=== PATIENT | male | born 1955 | race Two or more races ===

== ENCOUNTER 2023-01-13 09:45 | Inpatient (IN) | payer OTHER ==
[~2023-01-13] VITALS: Ht 165.1 cm; Wt 77.1 kg
[2023-01-13] MEDS ORDERED: CREST PO (12:22)
[2023-01-13] MEDS ORDERED: OMEGA3 PO (12:23)
[2023-01-13] MEDS ORDERED: [UNRECOGNIZED DRUG - CODE] PO (12:23)
[2023-01-13] MEDS ORDERED: UROXATRAL10 MG PO (12:24)
[2023-01-13] MEDS ORDERED: VITAMIN D3 PO (12:24)
[2023-01-13] MEDS ORDERED: CENTRUM (12:24)
[2023-01-18] MEDS ORDERED: ZOFRAN8 MG PO (07:21)
[2023-01-18] MEDS ORDERED: AMOX-CLAV 875-1 EACH PO (07:21)
[2023-01-18] MEDS ORDERED: MEDROLPACK PO (07:21)
[2023-01-18] MEDS ORDERED: PERCOCET 5-3251 EACH PO (07:21)
[2023-01-18] MEDS ORDERED: COLACE100 MG PO (07:22)
[2023-01-18] MEDS ORDERED: GABAPENTIN100 M2 PO (07:22)
[2023-01-18] MEDS ORDERED: NEURONTIN800 MG PO (07:22)
[2023-01-19 08:30] LABS: HEMATOCRIT 42.5 % (39.0-48.0); HEMOGLOBIN 14.5 g/dL (13-16.00); MEAN CELL VOLUME 93.3 fL (80.0-100.00); MEAN CORPUSCULAR HEMOGLOBIN 31.7 pg (27.00-32.0); PLATELET COUNT 224 K/uL (150-450); RED BLOOD COUNT 4.56 M/uL (4.00-6.00); RED CELL DISTRIBUTION WIDTH 12.9 % (11.5-14.5)
[2023-01-19 08:51] LABS: CALCIUM 8.8 mg/dL (8.5-10.1); CREATININE SERUM 0.81 mg/dL (0.70-1.30); GFR 94.76; POTASSIUM 4.68 mEq/L (3.5-5.1)
== END 2023-01-20 11:39 | DRG 455 ==
LOC: SURH 01-18 05:00 → O/R 01-18 05:00 → SURH 01-18 07:00
PROVIDERS: ADMIT Orthopaedic Surgery Orthopaedic Surgery of the Spine; ATTEND Orthopaedic Surgery Orthopaedic Surgery of the Spine
PROC: 0SG0071 Fusion of Lumbar Vertebral Joint with Autologous Tissue Substitute, Posterior Approach, Posterior Column, Open Approach (ICD-10-PCS; 2023-01-18)
PROC: 0QB30ZZ Excision of Left Pelvic Bone, Open Approach (ICD-10-PCS; 2023-01-18)
PROC: 07DR0ZZ Extraction of Iliac Bone Marrow, Open Approach (ICD-10-PCS; 2023-01-18)
PROC: XRGB0R7 Fusion of Lumbar Vertebral Joint using Custom-Made Anatomically Designed Interbody Fusion Device, Open Approach, New Technology Group 7 (ICD-10-PCS; principal; 2023-01-18 07:00)
DX: M48.062 Spinal stenosis, lumbar region with neurogenic claudication (principal); M51.36 Other intervertebral disc degeneration, lumbar region